=== PATIENT | female | born 1970 | race Caucasian/White ===

== ENCOUNTER 2017-09-08 19:30 | Emergency (ER) | END 2017-09-08 23:00 | disposition home or self-care (01) ==

== ENCOUNTER 2017-09-25 23:34 | Inpatient (IN) | END 2017-10-03 11:45 | disposition home or self-care (01) | DRG 443 ==

== ENCOUNTER 2019-01-07 16:35 | Emergency (ER) | payer OTHER ==
[~2019-01-07] VITALS: Ht 160 cm; Wt 68.0 kg
[~2019-01-07 16:35] MED LIST: BENZ-6 PO; IBUP800T48 PO; PRED10TA PO; PRED20TA PO; PROM118S PO; SIME80TA60 NGT
[2019-01-07 16:42] VITALS: Ht 160 cm; Wt 68.0 kg
[2019-01-07 21:22] VITALS: BP 152/81; PULSE 70; RESP 20
--- NOTE | 2019-01-08 00:54 | ERD ---
ER Documentation Chief Complaint Chief Complaint sent by pcp for increased lab results ( ALT, AST, BILIRUBIN);ABDOMINAL PAIN HPI 48-year-old female with past medical history of autoimmune hepatitis, anemia, hyperthyroidism presenting to the emergency department complaining of decreased appetite for the past 15 days intermittently. She denies any pain currently. She was sent by her primary care physician after she had a ALT level of 810 and AST level of 647. She denies any fevers, cough, chills, night sweats, or other symptoms at this time. ROS All systems reviewed and are negative except as per history of present illness. Medications Home Meds Active Scripts Prednisone* (Prednisone*) 10 Mg Tab, 30 MG PO DAILY for 30 Days, #90 TAB 3 Refills Prov:ARYA NUNES MD 10/03/17 Prednisone* (Prednisone*) 20 Mg Tab, 40 MG PO DAILY for 6 Days, #6 TAB Prov:ARYA NUNES MD 10/03/17 Simethicone* (Mylicon*) 80 Mg Tab, 80 MG NGT TID PRN for DISTENSION/GAS/BLOATING for 30 Days, #90 TAB Prov:ARYA NUNES MD 10/03/17 Benzonatate* (Tessalon Perle*) 100 Mg Capsule, 100 MG PO Q8H PRN for COUGH, #30 CAP Prov:ERNESTO DEGROOT PA-C 09/08/17 Promethazine/Phenyleph/Codeine (Bccjqyzdpqft-ES-Hpoolfw Syrup) 118 Ml Syrup, 118 ML PO QHS, #100 Prov:ERNESTO DEGROOT PA-C 09/08/17 Ibuprofen* (Motrin*) 800 Mg Tab, 800 MG PO Q6, #30 TAB Prov:ERNESTO DEGROOT PA-C 09/08/17 Allergies Allergies: Coded Allergies: No Known Drug Allergies (Verified Allergy, Unknown, 09/08/17) PMhx/Soc History of Surgery: Yes (ENDOSCOPY/COLONOSCOPY (2013)) Anesthesia Reaction: No Hx Neurological Disorder: No Hx Respiratory Disorders: No Hx Cardiac Disorders: No Hx Psychiatric Problems: No Hx Miscellaneous Medical Probl: Yes (ANEMIA, EPILEPSY) Hx Alcohol Use: No Hx Substance Use: No Hx Tobacco Use: No Smoking Status: Never smoker FmHx Family History: No diabetes Physical Exam Vitals Vital Signs Date Temp Pulse Resp B/P (MAP) Pulse Ox O2 O2 Flow FiO2 Time Delivery Rate 01/07/19 98.2 70 20 152/81 99 Room Air 21:22 (104) 01/07/19 98.6 95 20 131/72 96 16:42 (91) Physical Exam Const: No acute distress Head: Atraumatic Eyes: Normal Conjunctiva ENT: Normal External Ears, Nose and Mouth. Neck: Full range of motion. No meningismus. Resp: Clear to auscultation bilaterally Cardio: Regular rate and rhythm, no murmurs Abd: Soft, non tender, non distended. Normal bowel sounds. No rebound tenderness or guarding. No McBurney's point tenderness. Skin: No petechiae or rashes Back: No midline or flank tenderness Ext: No cyanosis, or edema Neur: Awake and alert Psych: Normal Mood and Affect Result Diagram: 01/07/19193501/07/191935 Results 24 hrs Laboratory Tests Test 01/07/19 19:36 01/07/19 19:48 White Blood Count 7.8 10^3/ul Red Blood Count 4.13 10^6/ul Hemoglobin 10.9 g/dl Hematocrit 34.2 % Mean Corpuscular Volume 82.8 fl Mean Corpuscular Hemoglobin 26.4 pg Mean Corpuscular Hemoglobin Concent 31.9 g/dl Red Cell Distribution Width 16.5 % Platelet Count 334 10^3/UL Mean Platelet Volume 10.0 fl Immature Granulocytes % 0.300 % Neutrophils % 70.4 % Lymphocytes % 18.7 % Monocytes % 8.4 % Eosinophils % 1.7 % Basophils % 0.5 % Nucleated Red Blood Cells % 0.0 /100WBC Immature Granulocytes # 0.020 10^3/ul Neutrophils # 5.5 10^3/ul Lymphocytes # 1.5 10^3/ul Monocytes # 0.7 10^3/ul Eosinophils # 0.1 10^3/ul Basophils # 0.0 10^3/ul Nucleated Red Blood Cells # 0.0 10^3/ul Urine Color YELLOW Urine Clarity CLEAR Urine pH 8.0 Urine Specific [place] 1.006 Urine Ketones NEGATIVE mg/dL Urine Nitrite NEGATIVE mg/dL Urine Bilirubin NEGATIVE mg/dL Urine Urobilinogen NEGATIVE mg/dL Urine Leukocyte Esterase NEGATIVE Sonny/ul Urine Hemoglobin NEGATIVE mg/dL Urine Glucose NEGATIVE mg/dL Urine Total Protein NEGATIVE mg/dl Sodium Level 141 mmol/L Potassium Level 3.7 mmol/L Chloride Level 106 mmol/L Carbon Dioxide Level 27 mmol/L Anion Gap 8 Blood Urea Nitrogen 8 mg/dl Creatinine 0.52 mg/dl Est Glomerular Filtrat Rate mL/min > 60 mL/min Glucose Level 110 mg/dl Calcium Level 8.6 mg/dl Total Bilirubin 0.8 mg/dl Direct Bilirubin 0.00 mg/dl Indirect Bilirubin 0.8 mg/dl Aspartate Amino Transf (AST/SGOT) 589 IU/L Alanine Aminotransferase (ALT/SGPT) 784 IU/L Alkaline Phosphatase 118 IU/L Total Protein 8.1 g/dl Albumin 3.8 g/dl Globulin 4.30 g/dl Albumin/Globulin Ratio 0.88 Lipase 188 U/L POC Beta HCG, Qualitative NEGATIVE Procedures/MDM 48-year-old female presents to the emergency department for elevated AST and ALT levels. She was sent by her primary care physician. Physical examination is within normal limits for the patient is nontoxic and well-appearing. Her AST today was 589 and ALT was 74. Otherwise remainder of the laboratory studies were essentially unremarkable. I did discuss his case with attending ED physician, Dr. Deacon Silver who recommended discharge with close outpatient follow-up with the patient's primary care physician. No evidence of emergent pathology. Patient was given copies of her results and advised to follow-up with her PCP within 24 to 48 hours and return here immediately for any new or worsening or concerning symptoms. Patient was in agreement with the diagnosis and plan and need for follow-up and return precautions. Departure Diagnosis: Primary Impression: Autoimmune hepatitis Condition: Fair Patient Instructions: Understanding Bloodborne Pathogens Additional Instructions: Llame al doctor ZEE y kelley teresa OCHOA PARA DENTRO DE 1-2 SOL.Dgale a la secretaria que nosotros le instruimos hacer esta ochoa.Avise o llame si gallardo condicin se empeora antes de la ochoa. Regresa aqui si peor o no mejor. SHERRI MORTENSEN PA-C Jan 08, 2019 00:54
== END 2019-01-07 21:24 | disposition home or self-care (01) ==
LOC: FTE 16:35
DX: K75.4 Autoimmune hepatitis (principal)
CPT/HCPCS: 80053; 81003; 81025; 83690; 85025; Z7502; 99283